=== PATIENT | male | born 1990 | race American Indian/Alaskan Native ===

== ENCOUNTER 2016-11-21 15:04 | Emergency (ER) | payer OTHER ==
[2016-11-21 15:13] VITALS: BP 151/81; PULSE 96; RESP 20; TEMP 98.6; O2SAT 99
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
== END 2016-11-21 16:00 | disposition home or self-care (01) ==
LOC: C.ER 15:04
DX: S20.211A Contusion of right front wall of thorax, initial encounter (principal); W50.0XXA Accidental hit or strike by another person, initial encounter; Y93.89 Activity, other specified; Y92.9 Unspecified place or not applicable